=== PATIENT | male | born 1965 | race Caucasian/White ===

== ENCOUNTER 2018-04-13 09:41 | Inpatient (IN) | payer MEDICAID ==
[2018-04-13 10:21] LABS: ABS Basophils 0.1 10^3/ul (0-0.2); ABS Eosinophils 0.2 10^3/ul (0-0.6); ABS Lymphocytes 0.6 10^3/ul (1.0-4.8); ABS Monocytes 0.6 10^3/ul (0-0.8); ABS Neutrophils 6.9 10^3/ul (1.5-7.7); ABS Nucleated RBC 0 10^3/ul; Eosinophil % 1.8 %; Hematocrit 34 % (42-52); Hemoglobin 11.1 g/dl (14.0-18.0); Lymphocyte % 6.7 %; Mean Corpuscular HGB Conc 32 g/dl (31-36); Mean Corpuscular Hemoglobin 27 pg (27-31); Mean Corpuscular Volume 85 fL (80-94); Mean Platelet Volume 8.3 fL (7.4-10.4); Nucleated Red Blood Cells % 0; Platelet Count 144 10^3/ul (150-450); Red Blood Count 4.07 10^6/ul (4.00-5.40); Red Cell Distribution Width 22 % (10.5-15); White Blood Count 8.3 10^3/ul (3.5-10.8)
--- NOTE | 2018-04-13 10:31 | ED ---
HPI Cardiac - HPI Summary HPI Summary: Patient is a 52 y/o M presenting to ED with complaints of light-headedness, fatigue, diaphoresis and chest discomfort. He was in Dr. Ricketts's office for first visit when he developed Sx. Patient's niece, who is present in the room, was concerned that he was having NV, patient was given x3 nitro. PMHx of NV X2. PMHX of CAD with cardiopyopathy, had recent ejection fraction of 10% done at [facility]. LVAD was considered, but due to renal insufficiency and peripheral vascular disease, he was not a candidate for LVAD. Patient notes minimal chest discomfort in room, states that he typically does not experience angina with his NV. In the room, he states that he is feeling "not too bad now" . Minimal chest discomfort is still present and currently rated 3/10, which patient's niece notes is decreased since previously. Patient does note that he still feels "foggy". Recent cough and congestion is reported, no pain/swelling in legs, no radiation of pain in arms, jaw. He denies alcohol usage, cigarette usage. Patient notes some SOB, states he sleeps on two pillows at night. Patient took baby ASA as part of regular morning routine. Fever, chills, erythema of eyes, sore throat, abdominal pain, vomiting, nausea, dysuria, hematuria, myalgia, edema, rash are not reported. On triage, pain is rated 5/10, nothing is noted to aggravate/alleviate Sx. Home medications and allergies are reviewed. - History of Current Complaint Chief Complaint: EDChestPainROMI Stated Complaint: DIZZINESS Time Seen by Provider: 04/13/18 09:51 Hx Obtained From: Patient Onset/Duration: Started Hours Ago, Still Present Timing: Constant, Lasting Hours Initial Severity: Moderate - 5/10 Current Severity: Mild - 3/10 Pain Intensity: 3 Pain Scale Used: 0-10 Numeric - 3 Character: Other: - discomfort Aggravating Factor(s): Nothing Alleviating Factor(s): Nothing Associated Signs and Symptoms: Positive: Chest Pain, Weakness - fatigue, Shortness of Breath, Lightheadedness, Diaphoresis, Cough, Other: - endorses congestion, "fogginess"; Fever, chills, erythema of eyes, sore throat, abdominal pain, vomiting, nausea, dysuria, hematuria, myalgia, edema, rash are not reported. No radiation of pain to arms, jaw - Allergy/Home Medications Allergies/Adverse Reactions: Allergies Allergy/AdvReac Type Severity Reaction Status Date / Time No Known Allergies Allergy Verified 04/13/18 09:53 Home Medications: Home Medications Aspirin 81 mg PO DAILY 04/13/18 [History Confirmed 04/13/18] PMH/Surg Hx/FS Hx/Imm Hx Cardiovascular History: Reports: Hx Coronary Artery Disease, Hx Myocardial Infarction, Hx Pacemaker/ICD History: Reports: Hx Renal Disease Sensory History: Denies: Hx Legally Blind, Hx Deafness Opthamlomology History: Denies: Hx Legally Blind EENT History: Denies: Hx Deafness Infectious Disease History: No Infectious Disease History: Denies: Traveled Outside the [place] in Last 30 Days - Family History Known Family History: Positive: Cardiac Disease, Hypertension, Diabetes, Other - FMHx of psychiartric problems, thyroid issues - Social History Alcohol Use: None Substance Use Type: Reports: None Smoking Status (MU): Never Smoked Tobacco Review of Systems Positive: Fatigue, Skin Diaphoresis. Negative: Fever, Chills Negative: Erythema ENT: Other - POSITIVE - CONGESTION Negative: Sore Throat Positive: Chest Pain Positive: Shortness Of Breath, Cough Negative: Abdominal Pain, Vomiting, Nausea Negative: dysuria, hematuria Negative: Myalgia, Edema Negative: Rash Neurological: Other - POSITIVE - LIGHT-HEADEDNESS All Other Systems Reviewed And Are Negative: Yes Physical Exam - Summary Physical Exam Summary: Constitutional: Well-developed, Well-nourished, Alert. (-) Distressed Skin: Warm, Dry HENT: Normocephalic; Atraumatic Eyes: Conjunctiva normal Neck: Musculoskeletal ROM normal neck. (-) JVD, (-) Stridor, (-) Tracheal deviation Cardio: Rhythm regular, rate normal, Heart sounds normal; Intact distal pulses; The pedal pulses are 2+ and symmetric. Radial pulses are 2+ and symmetric. (-) Murmur Pulmonary/Chest wall: Effort normal. (-) Respiratory distress, (-) Wheezes, (-) Rales Abd: Soft, (-) epigastric tenderness, (-) Distension, (-) Guarding, (-) Rebound Musculoskeletal: (-) Edema Lymph: (-) Cervical adenopathy Neuro: Alert, Oriented x3 Psych: Mood and affect Normal Triage Information Reviewed: Yes Vital Signs On Initial Exam: Initial Vitals Temp Pulse Resp BP Pulse Ox 98.3 F 50 14 122/78 96 04/13/18 09:50 04/13/18 09:50 04/13/18 09:50 04/13/18 09:50 04/13/18 09:50 Vital Signs Reviewed: Yes Diagnostics - Vital Signs Vital Signs Temp Pulse Resp BP Pulse Ox 04/13/18 10:22 98 04/13/18 10:17 50 10 97 04/13/18 09:50 98.3 F 50 18 122/78 97 - Laboratory Lab Results: Lab Results 04/13/18 Range/Units 10:10 WBC 8.3 (3.5-10.8) 10^3/ul RBC 4.07 (4.00-5.40) 10^6/ul Hgb 11.1 L (14.0-18.0) g/dl Hct 34 L (42-52) % MCV 85 (80-94) fL MCH 27 (27-31) pg MCHC 32 (31-36) g/dl RDW 22 H (10.5-15) % Plt Count 144 L (150-450) 10^3/ul MPV 8.3 (7.4-10.4) fL Neut % (Auto) 83.5 % Lymph % (Auto) 6.7 % [place] % (Auto) 6.8 % Eos % (Auto) 1.8 % Baso % (Auto) 1.2 % Absolute Neuts (auto) 6.9 (1.5-7.7) 10^3/ul Absolute Lymphs (auto) 0.6 L (1.0-4.8) 10^3/ul Absolute Monos (auto) 0.6 (0-0.8) 10^3/ul Absolute Eos (auto) 0.2 (0-0.6) 10^3/ul Absolute Basos (auto) 0.1 (0-0.2) 10^3/ul Absolute Nucleated RBC 0 10^3/ul Nucleated RBC % 0 Result Diagrams: 04/13/18 10:10 04/13/18 10:10 Lab Statement: Any lab studies that have been ordered have been reviewed, and results considered in the medical decision making process. - Radiology Chest X-ray Radiology Interpretation Completed By: Radiologist Summary of Radiographic Findings: IMPRESSION: CARDIOMEGALY WITH MILD INTERSTITIAL EDEMA CONSISTENT WITH MILD CHF. THIS REPORT WAS REVIEWED BY ED PHYSICIAN. - EKG 0940 Cardiac Rate: Other Rate - atrial paced rhythm with rate of 50 BPM Summary of EKG Findings: EKG showed atrial paced rhythm with rate of 50 BPM, no STEMI. Re-Evaluation - Re-Evaluation First Eval Re-Evaluation Time: 13:26 Comment: Upon re-eval, patient states that he is having active chest pain. Will discuss with Dr. Ricketts. Disposition - Course Course Of Treatment: Patient is a 52 y/o M presenting to ED with complaints of light-headedness, fatigue, diaphoresis and chest discomfort. He was in Dr. Ricketts's office for first visit when he developed Sx. Patient's niece, who is present in the room, was concerned that he was having NV, patient was given x3 nitro. PMHx of NV X2. PMHX of CAD with cardiopyopathy, had recent ejection fraction of 10% done at [facility]. LVAD was considered, but due to renal insufficiency and peripheral vascular disease, he was not a candidate for LVAD. Patient notes minimal chest discomfort in room, states that he typically does not experience angina with his NV. In the room, he states that he is feeling "not too bad now". Minimal chest discomfort is still present and currently rated 3/10, which patient's niece notes is decreased since previously. Patient does note that he still feels "foggy". Recent cough and congestion is reported, no pain/swelling in legs, no radiation of pain in arms, jaw. He denies alcohol usage, cigarette usage. Patient notes some SOB, states he sleeps on two pillows at night. Patient took baby ASA as part of regular morning routine. Physical exam is unremarkable. EKG showed atrial paced rhythm with rate of 50 BPM, no STEMI. 1108 - Patient's case was discussed with Dr. Ricketts, Dr. Ricketts to talk with providers managing the patient. 1128 - Dr. ricketts states that he spoke with providers that have been managing the patient, he states he is inclined to push nitrates and have patient follow up as outpatient. CXR IMPRESSION: CARDIOMEGALY WITH MILD INTERSTITIAL EDEMA CONSISTENT WITH MILD CHF. Labs showed Hgb 11.1, Hct 34, RDW 22, Plt count 144, absolute lymphs 0.6, potassium 3.4, BUN 57, creatinine 3.17, glucose 141, lactic acid 1.2, total protein 6.1. First trop 0.06, second 0.06. BNP is < 1300. During ED course, patient received nitro 0.4 mg SL EVERY 5 MIN PRN ONE, Nitro 2% ointment 1 inch TOPICAL ONCE ONE, ASA 162 mg PO ONCE. Upon re-eval, patient states that he is having active chest pain. 1328 - Informed Dr. Ricketts that the patient is having active chest pain, he recommends admission at this time. 1332 - Discussed patient's case with Dr. Martin, Dr. Martin accepts for admission. Patient was given nitro drip 27824 mcg in 250 mls @ 6 mls/hr IV ED ONCE. - Diagnoses Provider Diagnoses: Unstable angina - Physician Notifications Discussed Care Of Patient With: Mehrdad Ricketts Time Discussed With Above Provider: 11:08 Instructed by Provider To: Other - 1108 - Patient's case was discussed with Dr. Ricketts, Dr. Ricketts to talk with providers managing the patient. 1128 - Dr. ricketts states that he spoke with providers that have been managing the patient, he states he is inclined to push nitrates and have patient follow up as outpatient. 1328 - Informed Dr. Ricketts that the patient is having active chest pain, he recommends admission at this time. 1332 - Discussed patient's case with Dr. Martin, Dr. Martin accepts for admission. - Critical Care Time Critical Care Time: 30-74 min - 45 minutes Discharge - Sign-Out/Discharge Documenting (check all that apply): Patient Departure - admit - Discharge Plan Condition: Good Disposition: ADMITTED TO [facility] Referrals: Minh Campbell MD [Primary Care Provider] - - Attestation Statements Document Initiated by Scribe: Yes Documenting Scribe: DEMETRICE TEMPLETON Provider For Whom Anna is Documenting (Include Credential): PHIL NGUYEN MD Scribe Attestation: DEMETRICE Gray , scribed for PHIL NGUYEN MD on 04/13/18 at 1507. Status of Scribe Document: Ready
[2018-04-13] MEDS ORDERED: Nitroglycerin TAB 0.4 MG* 0.4 MG TAB SL ONE (10:33)
[2018-04-13] MEDS ORDERED: Nitro 2% OINT* (Nitroglycerin) 1 INCH/PAK PAK TOPICAL ONE (10:33)
[2018-04-13] MEDS ORDERED: Aspirin 81 mg CHEW TAB* 81 MG TAB.CHEW PO ONE (10:33)
[2018-04-13 10:40] LABS: Albumin 3.9 g/dL (3.2-5.2); Albumin/Globulin Ratio 1.8 (1-3); EGFR African American 25.2 (>60); EGFR Non-African American 20.8 (>60); Globulin 2.2 g/dL (2-4); Potassium 3.4 mmol/L (3.5-5.0); Total Bilirubin 0.7 mg/dL (0.2-1.0); Total Protein 6.1 g/dL (6.4-8.9)
[2018-04-13 10:46] LABS: Troponin I 0.06 ng/mL (<0.04)
--- NOTE | 2018-04-13 11:31 | CONS ---
ADDENDUM NOW INCLUDED ON THIS REPORT CC: Zechariah Coreas MD, [facility] * NEPHROLOGY CONSULTATION NOTE: DATE OF CONSULT: 04/13/18 HISTORY OF PRESENT ILLNESS: Mr. Trejo is a 52-year-old gentleman who was referred to me from the congestive heart failure program at the [facility]. He apparently has a long history of coronary artery disease with cardiomyopathy and a recent ejection fraction done at the [facility] of 10%. He had an episode of acute coronary artery syndrome, was transferred to the [facility] for evaluation for an LVAD. Because of his renal insufficiency and peripheral vascular disease, he was deemed to not be a candidate for an LVAD. At that time, his renal function had acutely deteriorated and is now recovering. While I was in the office beginning to take history, Mr. Trejo began to have severe retrosternal chest pain requiring sublingual nitroglycerin x3 and as a result, I decided to bring him directly over to the emergency room myself. He is being evaluated by the emergency room staff right now and is a little unstable and as a result, most of this history is taken from the medical record. He has a history of diabetes mellitus type 2, but has not been on oral medications recently. He has a history of hypertension. He has an ICD in place. He is status post myocardial infarction. He has had an episode of ventricular fibrillation and an episode of ventricular flutter. I have not yet had an opportunity to examine him. That evaluation will follow in a separate dictation. NEPHROLOGY CONSULTATION NOTE ADDENDUM: DATE OF CONSULT: 04/13/18 SOCIAL HISTORY: He has recently moved to [place] that will be close to family members. He does not use alcohol or tobacco. REVIEW OF SYSTEMS: No nausea, no vomiting. He does have a history of retinopathy. No shortness of breath. No change in his bowel habits. No dysuria , frequency, or urgency. No arthropathies. He does have some decreased sensation to his feet. PHYSICAL EXAM: Vital Signs: His blood pressure was 122/78 with pulse of 50, which is paced. He is afebrile. Respiratory rate 14. HEENT: His pupils are irregular, but reactive to light. His extraocular muscles are intact. He is anicteric. Neck: There is no jugular venous distention. Chest: Clear. Heart : Revealed regular rhythm. I did not hear any murmurs. Abdomen: Soft and nontender. There was trace edema. He did have diminished pulses to the periphery. DIAGNOSTIC STUDIES/LAB DATA: A review of his laboratory studies reveals white count of 8.3, hemoglobin 11.1, platelet count 144,000. Sodium 141, potassium 3.4, total CO2 of 30, chloride 103, BUN 57, creatinine 3.17, troponin 0.06. IMPRESSION: 1. Recurrent chest pain. 2. Coronary artery disease. 3. Severe congestive heart failure with cardiomyopathy. 4. Diabetes mellitus type 2. 5. At the present time, we are debating whether or not to attempt to transfer him back to [place] to the heart failure service versus admitting him here to stabilize his unstable angina. Part of that decision making will be depending upon my contacting his social work therapist in [place]. [id number]/[facility] #: [id number]/[facility] #: [id number] RONEL
--- NOTE | 2018-04-13 12:25 | CONS ---
NEPHROLOGY CONSULTATION NOTE: ADDENDUM: DATE OF CONSULT: 04/13/18 SOCIAL HISTORY: He has recently moved to [place] that will be close to family members. He does not use alcohol or tobacco. REVIEW OF SYSTEMS: No nausea, no vomiting. He does have a history of retinopathy. No shortness of breath. No change in his bowel habits. No dysuria , frequency, or urgency. No arthropathies. He does have some decreased sensation to his feet. PHYSICAL EXAM: Vital Signs: His blood pressure was 122/78 with pulse of 50, which is paced. He is afebrile. Respiratory rate 14. HEENT: His pupils are irregular, but reactive to light. His extraocular muscles are intact. He is anicteric. Neck: There is no jugular venous distention. Chest: Clear. Heart : Revealed regular rhythm. I did not hear any murmurs. Abdomen: Soft and nontender. There was trace edema. He did have diminished pulses to the periphery. DIAGNOSTIC STUDIES/LAB DATA: A review of his laboratory studies reveals white count of 8.3, hemoglobin 11.1, platelet count 144,000. Sodium 141, potassium 3.4, total CO2 of 30, chloride 103, BUN 57, creatinine 3.17, troponin 0.06. IMPRESSION: 1. Recurrent chest pain. 2. Coronary artery disease. 3. Severe congestive heart failure with cardiomyopathy. 4. Diabetes mellitus type 2. 5. At the present time, we are debating whether or not to attempt to transfer him back to [place] to the heart failure service versus admitting him here to stabilize his unstable angina. Part of that decision making will be depending upon my contacting his head teller in [place]. [id number]/[facility] #: [id number] RONEL
[2018-04-13] MEDS ORDERED: nitroGLYCERIN DRIP* 25,000 MCG/250 ML BTL IV ONE (13:41)
[2018-04-13 16:41] LABS: Troponin I 0.06 ng/mL (<0.04)
--- NOTE | 2018-04-13 16:58 | CONSULT ---
Subjective Date of Service: 04/13/18 Interval History: Admission Date: 04/13/18 Consult Date: 04/13/2018 Provider: Hospitalist service PRIMARY CARE PHYSICIAN: Temporarily, Dr. Sylvie Martin. RECREATION THERAPY AIDE: Dr. Hudson. FEATHER SHAPER: Follows with [facility] Heart failure service CHIEF COMPLAINT: Chest pain. Reason for consult: chest pain HISTORY OF PRESENT ILLNESS: This is a 52-year-old man with a history as below. He was recently admitted to [facility] heart failure service and my conversation with Dr. Kaur is summarized as "Was deemed not an advanced HF candidate due to fraility, CKD and PAD Did not perform an angiogram due to advanced CKD Did RHC and indexes no different on vs. off milrinone Seen in HF clinic 04/03/2018 Plan for 6 week follow up" He was originally cared for near [facility] He is now living with relatives Today when going to see Dr. Hudson he decided to walk in. This is more activity than he would normally ever do. He developed central chest discomfort (different than his PR symptom of just profuse sweating per his account). He was admitted and placed on a nitro gtt. He is now off of nitro gtt. He was found with a detectable troponin consistent with his known CAD and CHF. He ruled out for ACS. Baseline is able to climb up flight of stairs with 2 rests which is an improvement since he recently was discharged from the hospital. PMmhx: CAD s/p PCI x 2, last reported 2014 ICD with multiple episodes (8 per patients accounts) of shocks for ventricular arrhythmias, now on mexilitene and amiodarone Ischemic CM/CHF Gout Anemia PAD CKD FAMILY HISTORY: His mom had valvular heart disease. SOCIAL HISTORY: He is currently living with his niece, Iram, who is his decision maker should he not be able to make decisions. He is a never smoker. He does not drink alcohol. He does not use illicit drugs. allergies nkda Medications Active Medications: Amiodarone HCl (Cordarone Tab*) 400 mg PO DAILY CHINO Aspirin (Aspirin 81 Mg Chew Tab*) 81 mg PO DAILY CHINO Atorvastatin Calcium (Lipitor*) 80 mg PO 2100 ONE Stop: 04/13/18 21:01 Bumetanide (Bumex Tab*) 1 mg PO TID [facility]INO Carvedilol (Coreg Tab*) 12.5 mg PO BID [facility] Ferrous Sulfate (Ferrous Sulfate Tab*) 325 mg PO DAILY [facility] Heparin Sodium (Porcine) (Heparin Vial(*)) 5,000 units SUBCUT Q8HR [facility] Hydralazine HCl (Apresoline Tab*) 50 mg PO TID [facility] Isosorbide Mononitrate (Imdur Er Tab*) 60 mg PO BID [facility] Mexiletine HCl (Mexitil Cap*) 200 mg PO BID [facility] Pantoprazole Sodium (Protonix Tab*) 40 mg PO DAILY [facility] Home Medications: home meds Aspirin EC TAB* [Ecotrin EC Low Dose 81 MG*] 81 mg PO DAILY 04/13/18 [History Confirmed 04/13/18] amiodarone 400 mg po qd lipitor 80 bumex 3 mg po bid coreg 12.5 mg po bid colchicine imdur 60 mg po daily hydralazine 50 mg p tid mexileteine 200 mg po bid Review of Systems - Measurements Intake and Output: Intake and Output Last 24 Hours 04/11/18 04/12/18 04/13/18 04/14/18 06:59 06:59 06:59 06:59 Output Total 700 Balance -700 Weight 175 lb 7.807 oz Output: Urine 700 - Review of Systems Constitutional Symptoms: Negative: Weight Gain, Weight Loss Dermatology: Negative: Rash, Skin Lesions HEENT: Negative: Change in Hearing, Vertigo Eyes: Negative: Change in Vision, Double Vision Thyroid: Negative: Palpitations, Weight Loss, Weight Gain Pulmonary: Positive: Shortness of Breath, Exercise Intolerance Negative: Cough, Sputum, Hemoptysis, Respiratory Distress, COPD, Asthma, Home Oxygen Cardiology: Positive: Chest Pain, Shortness of Breath, Peripheral Vascular Dis Negative: Palpitations, Swelling of Ankles, Edema, Faintness, Syncope, Claudication, Paroxysmal Nocturnal Dyspnea, Orthopnea Gastroenterology: Negative: Nausea, Vomiting, Anorexia Genital - Urinary: Negative: Dysuria, Hematuria Musculoskeletal: Negative: Joint Pain, Joint Stiffness Endocrinology: Negative: Hirsutism, Polydipsia, Polyuria Hematologic/Lymphatic: Positive: Anemia, Use of Antiplatelet Drugs Negative: Hx Leukemia, Hx Lymphoma, Use of Anticoagulant Neurology: Negative: Change in Speech, Change in Sphincter Function, Numbness\\ Paresthesiae, Hx of Stroke\\TIA, Hx Seizures Psychiatry: Negative: Unusual Anxiety, Suicidal Ideation Allergic/Immunologic: Negative: Hx HIV, Immunocompromise Review of Systems Statement: All other review of systems negative, unless stated above. Objective Vital Signs: Temp Pulse Resp BP Pulse Ox 98.9 F 50 18 143/84 100 04/13/18 16:00 04/13/18 16:00 04/13/18 16:00 04/13/18 16:00 04/13/18 16:00 Oxygen Devices in Use Now: None Eyes: No Scleral Icterus Ears/Nose/Mouth/Throat: Clear Oropharnyx, Mucous Membranes Moist Neck: NL Appearance and Movements; NL JVP, Trachea Midline Respiratory: Symmetrical Chest Expansion and Respiratory Effort, Clear to Auscultation Cardiovascular: RRR, No Edema, - - no significant murmur, normal jvd Abdominal: NL Sounds; No Tenderness; No Distention Extremities: No Edema Skin: No Rash or Ulcers Neurological: Alert and Oriented x 3 Laboratory Results: 04/13/18 10:10 04/13/18 10:10 Total Bilirubin 0.70 mg/dL (0.2-1.0) 04/13/18 10:10 AST 23 U/L (13-39) 04/13/18 10:10 ALT 29 U/L (7-52) 04/13/18 10:10 Alkaline Phosphatase 70 U/L (34-104) 04/13/18 10:10 B-Natriuretic Peptide > 1300 pg/mL (<=100) H 04/13/18 10:10 Total Protein 6.1 g/dL (6.4-8.9) L 04/13/18 10:10 Albumin 3.9 g/dL (3.2-5.2) 04/13/18 10:10 Globulin 2.2 g/dL (2-4) 04/13/18 10:10 Albumin/Globulin Ratio 1.8 (1-3) 04/13/18 10:10 04/13/18 04/13/18 04/13/18 10:10 12:29 16:11 Troponin I 0.06 H* 0.06 H* 0.06 H* Diagnostic Imaging: cxrs 04/13/2018: mild interstitial edema echo 04/13/2018: Mild LV dilation, LvEF 20%, mod-severe dilated LA RV moderately dilated/dysfunctional mild mr/tr mod-severe pHTN EKG Data: ekg today a-paced 50 bpm, ivcd Assessment/Plan Patient had an episode of provoked angina due to overexertion. He is now pain free. He ruled out for ACS. His volume status seems ok. He is not on an AceI/ ARB or aldactone due to his renal function. Diagnostic LHC has previously been deferred due to his advanced CKD and risk for dialysis. I would recommend to d/ c nitro gtt and increase imdur from 60 mg po qd to 60 mg po bid (ordered). If his BP stays this elevated once he receives all of his usual medication, could also consider increasing his coreg dose. Multiple ventricular arrhythmias in the past on both amiodarone and mexiletine and not an LVAD candidate with severe ischemic CM has an unfavorable skilled nursing prognosis. If patient otherwise remains stable he can be discharged Friday04/14/2018 from a cardiac standpoint Thank you for allowing me to participate in the cardiovascular care of this patient. Please do not hesitate to contact me with questions or concerns
--- NOTE | 2018-04-13 17:17 | HP ---
HISTORY AND PHYSICAL: DATE OF ADMISSION: 04/13/18 TIME OF ADMISSION: 2:30 p.m. PRIMARY CARE PHYSICIAN: Temporarily, Dr. Sylvie Martin. UNCLAIMED PROPERTY OFFICER: Dr. Hudson. PHARMACOGENETICIST: The patient's cemetery counselor is at [facility]; he does not know the name. CHIEF COMPLAINT: Chest pain. HISTORY OF PRESENT ILLNESS: This is a 52-year-old man who is known to me from the outpatient setting, where I just met him last week. He has a history of an ischemic cardiomyopathy. I do not know his EF and have no records from outside hospitals of which he has been many. He is currently living in [place] because his niece and nephew have taken him in after a recent extended hospitalization at [facility] for decompensated heart failure. Today, his niece was bringing him to his initial consult with Dr. Hudson, but when they arrived to the hospital, there were no wheelchairs available, so they decided to walk to his office. When he got usp there, he developed chest pain. They stopped and sat down and rested and his chest pain did not get better. He took 3 nitro and it also did not get better. Dr. Hudson recommended evaluation in the emergency department. In the emergency department, he was tried on a nitro patch which did not help and he is now on a nitro drip and chest pain free. His niece, Iram, is here with him and provides some of the history. She states he has been doing very well at home. He has been getting stronger. He is now able to climb up flight of stairs with 2 rests which is an improvement since he recently was discharged from the hospital. He was admitted to [facility] on 03/17/18 to 03/31/18. He says he went in for his AICD going off. Prior to that, he had been admitted to [facility] in [place], [place], and was discharged, at which point his family picked him up from there and brought him to [place], where he stayed for several weeks. Again, I have no discharge summary, only a very brief discharge instruction that the patient was given. It explains that he was admitted with decompensated heart failure and consideration for advanced heart failure option, but was deemed not to be a candidate due to PVD and CKD. He did require milrinone during this hospitalization. His niece here with him is a physical therapist and says that she believes his deconditioning was in part caused by his prolonged hospitalization, but he had also been getting deconditioned over the past months to years when he was living in [place] with his brother. Regarding his cardiac history, he says his heart failure was discovered in 2013 and 2014 when he had an DC and he had stents placed. He has never had a bypass , but says he was diagnosed with heart failure 3 years ago and it was at that time that an ICD and pacemaker was placed. He is not sure exactly what the indication for the ICD and pacemaker was nor is his niece. He also says that he has history of 2 valves that are not working and he is not sure which ones they are. He has been taking all of his prescribed medications at home and he has been at his dry weight of approximately about 180 pounds. PAST MEDICAL HISTORY: Coronary artery disease; ischemic cardiomyopathy, reportedly not a candidate for advanced heart failure options, but recently requiring milrinone; gout; iron deficiency anemia; peripheral vascular disease; chronic kidney disease; and what sounds like possible nonsustained VT? FAMILY HISTORY: His mom had valvular heart disease. SOCIAL HISTORY: He is currently living with his niece, Iram, who is his decision maker should he not be able to make decisions. He is a never smoker. He does not drink alcohol. He does not use illicit drugs. PHYSICAL EXAMINATION GENERAL: Alert, disheveled man, in no distress. VITAL SIGNS: Temperature 98.3; heart rate 50; respiratory rate is recorded as 6 , but to my count it is not 6, it is 12; pulse ox 96% on room air; blood pressure 136/85. HEENT: Pupils are equal, round, and reactive to light. Oral mucosa is moist. NECK: JVP is 10 cm. No adenopathy. CHEST: He is in a regular rate and rhythm. I hear a murmur over the apex without radiation. His PMI is laterally displaced. LUNGS: Clear bilaterally. He has an ICD on his left chest wall. ABDOMEN: Soft, nontender, nondistended. No guarding or rebound. EXTREMITIES: No edema, rashes, or ulcers. His distal pulses are 1+ bilaterally. NEUROLOGIC: He is alert and mentating appropriately. He is oriented x3 and his memory is intact. DIAGNOSTIC STUDIES/LAB DATA: White blood cells 8.3, hemoglobin 11.1, platelets 144. Sodium 141, potassium 3.4, chloride 103, creatinine 3.17, I have no baseline for comparison. Lactic acid 1.2. Troponin is 0.06. BNP over 1300. EKG: Sinus bradycardia, normal axis, Q-wave in lead 3, QRS is 133. No ST or T changes with a left bundle branch morphology. I have no prior EKG for comparison. Chest x-ray: Cardiomegaly with mild interstitial edema. ASSESSMENT AND PLAN: Mr. Trejo is a 52-year-old man with extensive cardiac history including an ischemic cardiomyopathy and recent hospitalization requiring milrinone, who presents to our emergency department today with chest pain. 1. Unstable angina. He does not know when his last left heart catheterization was, but I am going to attempt to get records from [place] from [facility], where he thinks the left heart cath was done several years ago. It will be helpful to his anatomy. He is currently chest pain free on a nitro drip and I have discussed his case with Dr. Senior of Cardiology and asked him to see the patient. I will hold off on a heparin drip now as his first 2 troponins are 0.06. A prior EKG would also be helpful for comparison, so I am attempting to get records from [facility]. I am admitting to him to the ICU, where he will be titrated on the nitro drip and hopefully weaned off soon and with consideration of a possible left heart cath versus medical management, which I will defer to Cardiology. He is on Imdur at home at 60 mg, so there may be some room to increase that. He is also optimized on Coreg, aspirin, statin, and hydralazine at home. I will trend his troponins and order an echocardiogram. 2. Chronic systolic heart failure. He appears euvolemic to me today. I am continuing his home dose of Bumex. 3. Chronic kidney disease. Again, I do not have a previous creatinine available for comparison, but we will try to get records. He says his urine output has been good on this dose of Bumex and his dry weight has been stable at 180 pounds. We will order daily weights. 4. Type 2 diabetes. He takes no medications for this at home and his glucose on his BMP is 141. We will put him for Accu-Cheks. 5. Diet. Renal. 6. DVT prophylaxis. Heparin subcu. 7. Activity. Bed rest until chest pain is resolved. 8. Consult Cardiology. [id number] #: [id number] RONEL
--- NOTE | 2018-04-13 17:19 | ECHO ---
Patient: VIDHYA CERVANTES [facility] [place] Rec#: [id number] : 1965 Date: 04/13/2018 Age: 52y Height: 175 cm / 68.9 in Weight: 82 kg / 180.7 lbs Sex: M BSA: 1.98 Room#: ICU 9 Admit Date#: 04/13/2018 Type: Inpatient Referring: Sylvie Martin MD Reading: Messi Senior DO Financial Compliance Examiner: Isabel HoskinsRDCS,RDMS Transthoracic Echocardiogram Indication: CP BP: 143/84 HR: 50 Rhythm: Bradycardia Findings History: CAD, MIs, CHF, cardiomyopathy, DM, renal insufficiency, PVD Technical Comments: The study quality is good. Left Ventricle: The left ventricular chamber size is mildly dilated. Mild concentric left ventricular hypertrophy is observed. There is global hypokinesis of the left ventricle with minor regional variation. There is severely decreased left ventricular systolic function. The estimated ejection fraction is less than 20%. Abnormal left ventricular diastolic function is observed. Left Atrium: The left atrium is moderate to severely dilated. Right Ventricle: The right ventricle is moderately dilated. The right ventricular global systolic function is moderately reduced. Right Atrium: The right atrium is mildly dilated. Aortic Valve: The aortic valve is trileaflet. The aortic valve leaflets are mildly thickened. There is a trace of aortic regurgitation. There is no evidence of aortic stenosis. Mitral Valve: The mitral valve leaflets are mildly thickened. There is mild mitral regurgitation. There is no evidence of mitral stenosis. Tricuspid Valve: The tricuspid valve leaflets are normal. There is mild tricuspid regurgitation. There is evidence of moderate to severe pulmonary hypertension. Pulmonic Valve: The pulmonic valve appears normal. There is a trace pulmonic regurgitation. Pericardium: There is no significant pericardial effusion. Aorta: The aortic root appears normal. There is no dilatation of the aortic arch. Pulmonary Artery: The main pulmonary artery is mildly dilated. Conclusions The left ventricular chamber size is mildly dilated. Mild concentric left ventricular hypertrophy is observed. There is global hypokinesis of the left ventricle with minor regional variation. There is severely decreased left ventricular systolic function. The estimated ejection fraction is less than 20%. The left atrium is moderate to severely dilated. The right ventricle is moderately dilated. The right ventricular global systolic function is moderately reduced. There is mild mitral regurgitation. There is mild tricuspid regurgitation. There is evidence of moderate to severe pulmonary hypertension. None prior for comparison at time of interpretation Measurements Name Value Normal Range RVIDd (AP) 2D 4.2 cm (0.9 - 2.6) RVDdMajor (2D) 4.2 cm (2.2 - 4.4) RAd ISD 4CH 5.4 cm (3.4 - 4.9) RA (A4C)W 4.5 cm (2.9 - 4.6) IVSd (2D) 1.2 cm (0.6 - 1) LVPWd (2D) 1.2 cm (0.6 - 1) LVIDd (2D) 5.5 cm (3.6 - 5.4) LVIDs (2D) 4.6 cm - LV FS (2D) 16 % (25 - 45) Aortic Annulus 2.1 cm (1.4 - 2.6) Ao root diameter (2D) 3.2 cm (2.1 - 3.5) Ascending Ao 2.8 cm (2.1 - 3.4) Aortic arch 2.7 cm (1.8 - 3.4) LA dimension (AP) 2D 4.5 cm (2.3 - 3.8) LAd ISD 4CH 5.8 cm (2.9 - 5.3) LA ISD 4CH W 5.2 cm (2.5 - 4.5) Name Value Normal Range LA ESV BP (A/L) index 50 ml/m2 - Name Value Normal Range MV E-wave Vmax 1.4 m/sec - MV deceleration time 137 msec - MV A-wave Vmax 0.3 m/sec - MV E:A ratio 4.5 ratio - LV septal e' Vmax 0.03 m/sec - LV lateral e' Vmax 0.04 m/sec - LV E:e' septal ratio 47 ratio - LV E:e' lateral ratio 35 ratio - Name Value Normal Range AV Vmax 1.3 m/sec - AV VTI 25 cm - AV peak gradient 7 mmHg - AV mean gradient 3 mmHg - LVOT Vmax 0.8 m/sec - LVOT VTI 16 cm - LVOT peak gradient 2.6 mmHg - LVOT mean gradient 1 mmHg - CAMELIA Vmax 0.6 m/sec - Name Value Normal Range MV Vmax 1.4 m/sec - MV VTI 44 cm - MV peak gradient 8 mmHg - MV mean gradient 2 mmHg - MV PHT 98 msec - MVA (PHT) 2.2 cm2 - Name Value Normal Range TR Vmax 3.5 m/sec - TR peak gradient 49 mmHg - RAP 8 mmHg - RVSP 57 mmHg - IVC diameter 2.3 cm - Name Value Normal Range PV Vmax 0.6 m/sec - PV peak gradient 1.4 mmHg -
[2018-04-13] MEDS: Isosorbide Mononitrate ER TAB* 60 MG PO SCH ×2 (17:24→20:31)
[2018-04-13] MEDS: Bumetanide TAB* 2 MG PO SCH (20:30)
[2018-04-13] MEDS: Carvedilol TAB* 25 MG PO SCH (20:30)
[2018-04-13] MEDS: hydrALAZINE TAB* 25 MG PO SCH (20:31)
[2018-04-13] MEDS ORDERED: Colchicine* 0.6 MG TAB PO SCH (21:00)
[2018-04-13] MEDS ORDERED: Atorvastatin* 80 MG TAB PO ONE (21:00)
[2018-04-13] MEDS: MEXILETINE 200 MG PO SCH (22:10)
[2018-04-13] MEDS: Heparin VIAL(*) 5000 UNITS/ML VIAL (FIVE THOUSAND) SUBCUT SCH (22:10)
[2018-04-14] MEDS: Heparin VIAL(*) 5000 UNITS/ML VIAL (FIVE THOUSAND) SUBCUT SCH ×2 (05:29→13:54)
[2018-04-14 07:09] LABS: ABS Basophils 0.1 10^3/ul (0-0.2); ABS Eosinophils 0.1 10^3/ul (0-0.6); ABS Lymphocytes 0.7 10^3/ul (1.0-4.8); ABS Monocytes 0.6 10^3/ul (0-0.8); ABS Neutrophils 6.5 10^3/ul (1.5-7.7); ABS Nucleated RBC 0 10^3/ul; Eosinophil % 1.4 %; Hematocrit 33 % (42-52); Hemoglobin 10.8 g/dl (14.0-18.0); Lymphocyte % 8.3 %; Mean Corpuscular HGB Conc 33 g/dl (31-36); Mean Corpuscular Hemoglobin 28 pg (27-31); Mean Corpuscular Volume 84 fL (80-94); Mean Platelet Volume 8.5 fL (7.4-10.4); Nucleated Red Blood Cells % 0; Platelet Count 133 10^3/ul (150-450); Red Blood Count 3.95 10^6/ul (4.00-5.40); Red Cell Distribution Width 22 % (10.5-15)
[2018-04-14 07:40] LABS: BUN/Creatinine Ratio 16.6 (8-20); Calcium 9.1 mg/dL (8.6-10.3); EGFR African American 24.4 (>60); EGFR Non-African American 20.1 (>60); Potassium 3.8 mmol/L (3.5-5.0)
[2018-04-14] MEDS: Bumetanide TAB* 2 MG PO SCH ×2 (08:31→13:54)
[2018-04-14] MEDS: Carvedilol TAB* 25 MG PO SCH (08:31)
[2018-04-14] MEDS: Isosorbide Mononitrate ER TAB* 60 MG PO SCH (08:31)
[2018-04-14] MEDS: hydrALAZINE TAB* 25 MG PO SCH ×2 (08:31→13:54)
[2018-04-14] MEDS: MEXILETINE 200 MG PO SCH (08:32)
[2018-04-14] MEDS ORDERED: Pantoprazole TAB * 40 MG TAB PO SCH (09:00)
[2018-04-14] MEDS ORDERED: Amiodarone TAB* 400 MG PO SCH (09:00)
[2018-04-14] MEDS ORDERED: Aspirin 81 mg CHEW TAB* 81 MG TAB.CHEW PO SCH (09:00)
[2018-04-14] MEDS ORDERED: Ferrous Sulfate TAB* 325 MG PO SCH (09:00)
--- NOTE | 2018-04-14 11:39 | PN ---
PROGRESS NOTE: DATE OF SERVICE: 04/14/18 HISTORY: Mr. Trejo is doing much better than yesterday. His chest pain has resolved. He is not short of breath. He is eating and drinking well. He is going to be discharged soon. His blood pressure is 106/65 with pulse of 50, respirations are 16. His chest is clear. The heart revealed a regular rhythm without murmurs. There is no edema. Hemoglobin is 10.8. His creatinine is 3.26 , potassium 3.8. IMPRESSION: 1. Coronary artery disease. 2. Cardiomyopathy with congestive heart failure. 3. Chronic renal insufficiency. 4. Diabetes mellitus. PLAN: We spent some time today talking about the implications of his chronic renal insufficiency and the fact that he is not going to be a candidate for an LVAD. We reviewed the probable course of his diabetic nephropathy. In addition , we noted the fact that Dr. Senior mentions in his notes that he has not been treated with an THOMAS inhibitor or Aldactone. I am actually less concerned with the use of these drugs than most people would be. I think the benefit of starting an THOMAS inhibitor would be significant even in the phase of deteriorating renal function. As a result, I will start captopril 6.25 mg twice a day. I will attempt to increase this as an outpatient and eventually cross him over to lisinopril. Depending upon what his potassium does at that point, I may or may not add spironolactone into the mix. I will be seeing him as an outpatient within a few days. [id number]/[facility] #: [id number] MTDD
[2018-04-14 15:37] VITALS: BP 102/66
== END 2018-04-14 17:22 | disposition home or self-care (01) | DRG 198 ==
LOC: ED 09:41 → ICU 14:33 → MEDTELE 19:22
PROVIDERS: ADMIT Internal Medicine; ATTEND Internal Medicine
DX: I25.110 Atherosclerotic heart disease of native coronary artery with unstable angina pectoris (principal); I50.22 Chronic systolic (congestive) heart failure; R07.9 Chest pain, unspecified; E11.22 Type 2 diabetes mellitus with diabetic chronic kidney disease; E11.51 Type 2 diabetes mellitus with diabetic peripheral angiopathy without gangrene; I27.20 Pulmonary hypertension, unspecified; N18.9 Chronic kidney disease, unspecified; I25.5 Ischemic cardiomyopathy; M10.9 Gout, unspecified; D64.9 Anemia, unspecified; Z95.810 Presence of automatic (implantable) cardiac defibrillator; Z95.5 Presence of coronary angioplasty implant and graft; Z82.49 Family history of ischemic heart disease and other diseases of the circulatory system; Z79.82 Long term (current) use of aspirin; Z79.899 Other long term (current) drug therapy
CPT/HCPCS: 36415; 71045; 80048; 80053; 82947; 83605; 83880; 84484; 85025; 87641; 93005; 93306; 99284; A9270-GY; J1644